=== PATIENT | male | born 1965 | race African-American/Black ===

== ENCOUNTER 2019-03-16 12:13 | Emergency (ER) | payer OTHER ==
[~2019-03-16] VITALS: Ht 193 cm; Wt 131.5 kg
[2019-03-16 12:15] VITALS: Ht 193 cm; Wt 131.5 kg
--- NOTE | 2019-03-16 12:22 | NUR ---
PT ABLE TO ANSWER SIMPLE QUESTIONS, ABOUT WEIGHT, MEDICAL HX AND NAME.
--- NOTE | 2019-03-16 12:27 | NUR ---
AT BEDSIDE FOR CARDIAC US.
--- NOTE | 2019-03-16 12:27 | NUR ---
LEAHY PLACED BY SUELLEN CONDE.
--- NOTE | 2019-03-16 12:30 | NUR ---
PT STS THAT HE IS HAVING SOB AND CHEST PAIN, PT STS "PLEASE HURRY UP".
--- NOTE | 2019-03-16 12:31 | NUR ---
CISCOG BEING DRAWN BY RESP.
--- NOTE | 2019-03-16 12:31 | NUR ---
ROBERT BP BEING TAKEN BY SUELLEN CONDE.
--- NOTE | 2019-03-16 12:31 | NUR ---
PT STILL TALKING AND VERBALIZING THAT HIS LEGS FEEL NUMB.
--- NOTE | 2019-03-16 12:32 | NUR ---
URINE OUTPUT 100ML FROM LEAHY.
--- NOTE | 2019-03-16 12:33 | NUR ---
PT STS LEFT UPPER LEG PAIN.
--- NOTE | 2019-03-16 12:33 | NUR ---
US AT BEDSIDE.
--- NOTE | 2019-03-16 12:34 | NUR ---
PT STS THAT HE FELL TO GROUND WHEN HE WAS WORKIGN OUT AT THE LONGTERM AND HIS HOMERO THIGHS WERE HURTING SO HE FELL TO THE GROUND. PT STS THAT HE DOES NOT REMEMBER WHEN HE PASSED OUT. PT HAS INCREASED LABORED BREATHS.
--- NOTE | 2019-03-16 12:39 | NUR ---
JHONNYFRFRANCI [address] NAYLOR.
--- NOTE | 2019-03-16 12:42 | NUR ---
2L STARTED PRESSURE BAG VERBALIZED DR. DURHAM.
--- NOTE | 2019-03-16 12:42 | NUR ---
FENTANYL 50MG BY SUELLEN CONDE. VERBALIZED FROM DR. DURHAM.
--- NOTE | 2019-03-16 13:05 | NUR ---
PT RETURNED FROM CT. PT TOLERATED WELL. VSS.
--- NOTE | 2019-03-16 13:10 | NUR ---
LAB AT BEDSIDE.
--- NOTE | 2019-03-16 13:14 | NUR ---
PER MEDIC PT WAS WORKING OUT AT THE [facility] WITH FIREMEN AROUND 1130. PER MEDIC PT THEN WAS ON HIS KNEES DUE TO HOMERO THIGH PAIN. PER MEDIC [facility] LONG TERM NURSES GAVE PT 5MG NASAL NARCAN. PER MEDIC PT WAS NON RESPONSIVE TO ANY QUESTIONS. PER MEDIC PT HR WAS 40 AND GAVE ATROPINE 0.5MG IV. PER PT HE IS HAVING HOMERO THIGH PAIN, BUT INITIALLY WAS ONLY HAVING LT UPPER THIGH "ACHE". PT LABORED BREATHING UPON ARRIVAL ON A NRM 15L. PT DENIES ANY CHEST PAIN OR ABDOMINAL PAIN AT THIS TIME. PT ABLE TO VERBALIZE NO HX OR ALLERGIES TO MEDICATIONS. DR. DURHAM AT BEDSIDE. CLIFFORD HATFIELD AT BEDSIDE. NOTED LAC TO LOWER LIP, NO ACTIVE BLEEDING AT THIS TIME. PT DENIES HITTING HEAD WITH +LOC PER BYSTANDERS.
[2019-03-16 13:18] LABS: AMPHETAMINE QUAL UR NONE DETECTED (See below)
--- NOTE | 2019-03-16 13:30 | NUR ---
PT STATING "I CANT GET COMFORTABLE" AND STS THAT HIS LEGS ARE STILL HURTING. VSS. WILL CONTINUE TO MONITOR.
--- NOTE | 2019-03-16 13:30 | NUR ---
3L STARTED PER DR. DURHAM VERBAL ORDER.
[2019-03-16 13:36] LABS: BASOPHIL % 0.1 % (0-2); PLATELET COUNT 176 x10^3mcL (130-400); RED CELL DISTRIBUTION WIDTH 13.9 % (11.5-14.5)
[2019-03-16 13:51] LABS: ALKALINE PHOSPHATASE 81 U/L (46-116); ALT/SGPT 556 U/L (16-63); AST/SGOT 470 U/L (15-37); BILIRUBIN TOTAL 0.6 mg/dL (0.20-1.00); CALCIUM 8.3 mg/dL (8.5-10.1); CHLORIDE SERUM 106 mmol/L (98-107); CREATININE SERUM 2.3 mg/dL (0.7-1.3); GFR1 32 mL/min; GLUCOSE SERUM 239 mg/dL (74-106); POTASSIUM SERUM 5.5 mmol/L (3.5-5.1); SODIUM SERUM 145 mmol/L (136-145)
[2019-03-16 13:56] LABS: UA SPECIFIC GRAVITY 1.025 (1.005-1.035); microscopic required? YES
[2019-03-16 13:57] LABS: urine erythrocyte TRACE (NEGATIVE)
[2019-03-16 14:05] LABS: ALBUMIN 2.6 g/dL (3.4-5.0); TOTAL PROTEIN, SERUM 5.5 g/dL (6.4-8.2)
[2019-03-16 14:08] LABS: CARBON DIOXIDE 7.8 mmol/L (21-32); MAGNESIUM 4.3 mg/dL (1.8-2.4)
--- NOTE | 2019-03-16 14:43 | NUR ---
LEVOPHED STARTED VERBAL ORDER DR. DURHAM 1MCG.
--- NOTE | 2019-03-16 14:45 | NUR ---
DR. DURHAM AT BEDSIDE.
--- NOTE | 2019-03-16 14:50 | NUR ---
LEVOPHED INCREASED 2MCG/MIN PER DR. DURHAM FOR LOW BP.
[2019-03-16 14:58] LABS: CHOLESTEROL/HDL RATIO 1.6
--- NOTE | 2019-03-16 15:05 | NUR ---
PT KEEPS STATING "MY LEGS HURT". DR. DURHAM MADE AWRE.
--- NOTE | 2019-03-16 15:38 | NUR ---
PT RETURNED FROM CT. PT TOLERATED WELL.
--- NOTE | 2019-03-16 15:57 | NUR ---
HOLDEN VERBAL DR. DURHAM
--- NOTE | 2019-03-16 16:03 | NUR ---
RT AT BEDSIDE. INTUBATION IN PROGRESS.
--- NOTE | 2019-03-16 16:05 | NUR ---
ROCONIUM PUSHED 120MG
--- NOTE | 2019-03-16 16:06 | NUR ---
ETOMIDATE IN 1605
--- NOTE | 2019-03-16 16:06 | NUR ---
INTUBATION INPROGRESS.
--- NOTE | 2019-03-16 16:09 | NUR ---
EKG IN PROGRESS.
--- NOTE | 2019-03-16 16:12 | NUR ---
SOT RESTRAINTS APPLIED.
--- NOTE | 2019-03-16 16:15 | NUR ---
BICARB PUSHED LT HAND.
--- NOTE | 2019-03-16 16:17 | NUR ---
LEVOPHED STARTED 4MCG/MIN
[2019-03-16 16:18] VITALS: BP 95/33
--- NOTE | 2019-03-16 16:20 | NUR ---
ABG BEING DRAWN.
--- NOTE | 2019-03-16 16:31 | NUR ---
XRAY AT BEDSIDE.
--- NOTE | 2019-03-16 16:37 | NUR ---
CORRUGATOR MACHINE OPERATOR DISPATCH [facility] WILL CALL BACK DUE TO HIGH VOLUME OF CALLS #[id number].
--- NOTE | 2019-03-16 16:37 | NUR ---
[facility] INFORMED OF PT CASE#[id number] PER MICHELLE RELEASE OF BODY TO PULLING MACHINE OPERATOR.
--- NOTE | 2019-03-16 16:39 | NUR ---
LAB AT BEDSIDE.
[2019-03-16 16:40] VITALS: BP 101/52
--- NOTE | 2019-03-16 16:52 | NUR ---
DR. RAMÍREZ AT BEDSIDE.
--- NOTE | 2019-03-16 16:54 | NUR ---
RT AT BEDSIDE.
--- NOTE | 2019-03-16 16:54 | NUR ---
SOFT RESTRAINTS REMOVED.
--- NOTE | 2019-03-16 16:54 | NUR ---
[address] BICARB DRIP INCREASED. VERBALIZED DR. DURHAM.
--- NOTE | 2019-03-16 16:58 | NUR ---
BICARB WIDE OPEN IV.
--- NOTE | 2019-03-16 17:01 | NUR ---
SEE CODE SHEET FOR MEDS.
--- NOTE | 2019-03-16 17:01 | NUR ---
PULSE CHECK ASYSTOLE
[2019-03-16 17:03] LABS: CALCIUM 9.3 mg/dL (8.5-10.1); CARBON DIOXIDE 13.5 mmol/L (21-32); CREATININE SERUM 2.6 mg/dL (0.7-1.3)
--- NOTE | 2019-03-16 17:03 | NUR ---
PULSE CHECK BY DR. DURHAM ASYSTOLE, CPR RESUMED.
--- NOTE | 2019-03-16 17:05 | NUR ---
PULSE CHECK BY DR. DURHAM ASYSTOLE, CPR RESUMED.
--- NOTE | 2019-03-16 17:06 | NUR ---
PULSE CHECK BY DR. DURHAM ASYSTOLE, CPR RESUMED.
[2019-03-16 17:07] LABS: POTASSIUM SERUM 7.9 mmol/L (3.5-5.1)
--- NOTE | 2019-03-16 17:08 | NUR ---
PULSE CHECK BY DR. DURHAM ASYSTOLE, CPR RESUMED.
--- NOTE | 2019-03-16 17:10 | NUR ---
PULSE CHECK BY DR. DURHAM ASYSTOLE, CPR RESUMED.
--- NOTE | 2019-03-16 17:12 | NUR ---
PULSE CHECK BY DR. DURHAM ASYSTOLE, CPR RESUMED.
--- NOTE | 2019-03-16 17:14 | NUR ---
PULSE CHECK BY DR. DURHAM ASYSTOLE, CPR RESUMED.
--- NOTE | 2019-03-16 17:16 | NUR ---
PULSE CHECK BY DR. DURHAM ASYSTOLE, CPR RESUMED.
--- NOTE | 2019-03-16 17:18 | NUR ---
PULSE CHECK BY DR. DURHAM ASYSTOLE, CPR RESUMED.
--- NOTE | 2019-03-16 17:20 | NUR ---
PULSE CHECK BY DR. DURHAM ASYSTOLE, CPR RESUMED.
--- NOTE | 2019-03-16 17:22 | NUR ---
CODE ENDED AT THIS TIME.
--- NOTE | 2019-03-16 17:43 | NUR ---
ANABELL ADMITTING MADE AWARE OF PT EXPIRATION. STEPHEN SHORT MADE AWARE OF PT EXPIRATION.
--- NOTE | 2019-03-16 20:55 | NUR ---
RECIEVED CALL FROM CHANGE OVER STATING NEED FOR ORGINAL VIALS OF BLOOD FROM LAB. SPOKE WITH LIZETT FROM LAB, SHE WILL HAVE VIALS READY FOR CHANGE OVER AND CHANGE OVER WILL HAVE TO COME TO LAB AND SIGN OUT THE VIALS DIRECTLY.
--- NOTE | 2019-03-17 07:36 | NUR ---
ECHOCARDIOGRAM NOT DONE-DEPARTED
--- NOTE | 2019-03-18 15:44 | NUR ---
LATE NOTE ENTRY APPROVED BY ANMOL KEN BRAND MANAGER CASE # [id number] KAREN
== END 2019-03-16 22:26 | disposition expired ==
LOC: ED 12:13 → IC 15:43 → ED 15:43
PROVIDERS: Emergency Medicine; Internal Medicine
DX: I46.9 Cardiac arrest, cause unspecified (principal); R57.9 Shock, unspecified
CPT/HCPCS: 36600; 82962; G0480; J0696; J1815; J2405; J2543; J3010; J3490; J7030; Q0092; Q9967